=== PATIENT | male | born 1990 | race Caucasian/White ===

== ENCOUNTER 2019-09-25 16:08 | Emergency (ER) | payer SELFPAY ==
--- NOTE | 2019-09-25 17:23 | EDM.PDOC ---
ED HPI GENERAL MEDICAL PROBLEM - General Chief Complaint: Respiratory Problem Stated Complaint: FEVER/VOMITING Time Seen by Provider: 09/25/19 16:47 Source of Information: Reports: Patient History Limitations: Reports: No Limitations - History of Present Illness INITIAL COMMENTS - FREE TEXT/NARRATIVE: 29 year old male presents for fever. Patient reports he developed symptoms 2 days ago. Reports a fever of 99-100 at home. Reports associated symptoms of cough, headaches, body aches and sore throat. He denies any ear pain or abdominal pain. Reports ill contacts, states that his girlfriend is ill. No recent travel. Did not receive flu vaccine this year. Headache Pain Score (Numeric/FACES): 7 - Related Data Allergies Allergy/AdvReac Type Severity Reaction Status Date / Time No Known Allergies Allergy Verified 09/25/19 16:38 Home Meds: Home Meds . [No Known Home Meds] 03/26/19 [History] Past Medical History - Past Health History Medical/Surgical History: Denies Medical/Surgical History Social & Family History - Tobacco Use Smoking Status *Q: Current Every Day Smoker Years of Tobacco use: 15 Packs/Tins Daily: 0.2 - Caffeine Use Caffeine Use: Reports: None - Recreational Drug Use Recreational Drug Use: No ED ROS GENERAL - Review of Systems Review Of Systems: See Below Constitutional: Reports: Fever, Chills, Malaise, Other (bodyaches) HEENT: Reports: Throat Pain. Denies: Ear Pain Respiratory: Reports: Cough Neurological: Reports: Headache ED EXAM, GENERAL - Physical Exam Exam: See Below Exam Limited By: No Limitations General Appearance: Alert, WD/WN, No Apparent Distress Eye Exam: Bilateral Eye: Normal Inspection Ears: Normal External Exam, Normal Canal, Hearing Grossly Normal, Normal TMs Nose: Normal Inspection Throat/Mouth: Normal Inspection, Normal Lips, Normal Oropharynx, Normal Voice, No Airway Compromise Respiratory/Chest: No Respiratory Distress, Lungs Clear, Normal Breath Sounds Cardiovascular: Normal Peripheral Pulses, Regular Rate, Rhythm, No Murmur GI/Abdominal: Normal Bowel Sounds Neurological: Alert, Oriented, Normal Cognition Psychiatric: Normal Affect, Normal Mood Skin Exam: Warm, Dry, Normal Color Course - Vital Signs Last Recorded V/S: Last Vital Signs Temp 99.8 F 09/25/19 16:36 Pulse 77 09/25/19 16:36 Resp 16 09/25/19 16:36 BP 137/77 09/25/19 16:36 Pulse Ox 92 L 09/25/19 16:36 - Re-Assessments/Exams Free Text/Narrative Re-Assessment/Exam: 09/25/19 18:10 Influence the returned negative. This appears to be viral upper respiratory infection. Recommend symptomatic care. Discharge instructions were reviewed with him verbally. Recommended Tylenol, Motrin, fluids and rest. Follow-up with family medicine if not much better in 1- 2 weeks. Return to the ER if symptoms change or worsen. Departure - Departure Time of Disposition: 18:10 Disposition: Home, Self-Care 01 Condition: Good Clinical Impression: Viral upper respiratory illness - Discharge Information *PRESCRIPTION DRUG MONITORING PROGRAM REVIEWED*: No *COPY OF PRESCRIPTION DRUG MONITORING REPORT IN PATIENT GIANCARLO: No Instructions: Upper Respiratory Infection, Adult, [id number] Referrals: PCP,None [Primary Care Provider] - Forms: ED Department Discharge, ED Return to Work/School Form Sepsis Event Note - Evaluation Sepsis Screening Result: No Definite Risk - Focused Exam Vital Signs: Vital Signs Temp Pulse Resp BP Pulse Ox 09/25/19 16:36 99.8 F 77 16 137/77 92 L Date Exam was Performed: 09/25/19 Time Exam was Performed: 20:30
== END 2019-09-25 18:18 | disposition home or self-care (01) ==
LOC: JD.ED 16:08
DX: J39.9 Disease of upper respiratory tract, unspecified (principal); B97.89 Other viral agents as the cause of diseases classified elsewhere; F17.210 Nicotine dependence, cigarettes, uncomplicated
CPT/HCPCS: 87804; 99281; 99283